=== PATIENT | male | born 1940 | race Caucasian/White ===

== ENCOUNTER 2019-06-14 12:38 | Inpatient (IN) | payer OTHER, MEDICARE ==
[~2019-06-14] VITALS: Ht 180.3 cm; Wt 60.7 kg
[2019-06-14 15:15] VITALS: BP 135/66
--- NOTE | 2019-06-14 16:58 | HPEPDOC ---
General Date of Admission Jun 14, 2019 at 15:00 Date of Service: Jun 14, 2019 Chief Complaint The patient is a 79-year-old male who was transferred from 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 as a transfer from [facility] for dysphagia / abdominal pain. Patient presented to [facility] today after experiencing 2-3 days of abdominal discomfort. Patient reports that his pain is a 5-6/10, patient notes that his pain is non-radiating, without any alleviating or aggravating factors. She denies any nausea, vomiting, constipation or diarrhea. He has not expense any fevers or chills. Last 2 weeks. When asked about discomfort with swallowing. Patient reports that he does not express any problems. Patient girlfriend has reported that he had [place] Cereal this morning without any issues. Patient denies chest pain, palpitations. No change in his baseline shortness of breath or cough. 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, HTN, DLP, IDDM2, COPD on 2L O2 (Chronic hypoxic respiratory failure), Hx of GI bleed 2/2 Diverticulosis, Hx of Phlebitis of L leg (was on Coumadin), CKD3, and Gout Surgical History Cholecystectomy Back surgery Family History - Family history was reviewed and is currently noncontributory to the current hospitalization Social History - Denies the use of tobacco or illicit drugs; patient quit smoking several years ago but was a smoker of 20 years at 1 PPD - Denies recent travel or sick contacts - Lives with girlfriend - Occupation; tractor operator Review of Systems Other systems 10 point review of systems complete, all negative otherwise stated in HPI Vital Signs - Vitals: BP [135/66], HR [58], RR [16], Sat [99%NC3L], Temp [96.4F] - General: Lying in bed, No acute distress, Speaking in full sentences, Awake / Alert - HEENT: NC, AT, PERRLA, EOMI - CVS: RRR, +S1S2 - Lungs: Fair air entry bilaterally, No appreciable wheezing / rales / rhonchi - Abdomen: Soft, Non-distended, Mild epigastric discomfort - Extremities: No lower extremity edema, No calf tenderness - Neuro: No focal motor or sensory deficit - Skin: No visible rashes Laboratory Data Labs 24H Laboratory Tests 2 06/14/19 15:55: Urine Color STRAW, Urine Appearance CLEAR, Urine pH 5.0, Urine Specific [place] 1.006, Urine Protein 2+H, Urine Glucose (UA) 1+H, Urine Ketones NEGATIVE, Urine Blood NEGATIVE, Urine Nitrite NEGATIVE, Urine Bilirubin NEGATIVE, Urine Urobilinogen 0.2, Urine Leukocyte Esterase NEGATIVE, Urine WBC (Auto) 0, Urine RBC (Auto) 3, Urine Hyaline Casts (Auto) 1, Urine Bacteria (Auto) NEGATIVE, Urine Squamous Epithelial Cells 0, Urine Sperm (Auto) Plan / VTE VTE Prophylaxis Ordered?: Yes Plan Plan Abdominal pain / Reported dysphagia - likely 2/2 underlying malignancy - Patient was recently diagnosed with an undifferentiated adenocarcinoma of the lower esophagus - Found on EGD by Dr. Jaki Oh approximately 1 month ago - Clinically he reports he has not had difficulty eating solids; reports eating [employer] Cereal this morning - Labs reviewed from [place] without any significant abnormalities - Will get Esophagram Barium Swallow - Discussed with Dr. Reyes; reported that patient was a surgical candidate af ter he received an EUS completed at [facility]; was advised that he would need Chemotherapy / Radiation prior to surgery - Called and discussed case with Dr. 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 Reyes - was reported that it was for thrombophlebitis - s/p Coumadin CKD3 - Cr at [facility] of 2.0 - Will start IV fluid hydration (gentle) Gout - Will c/w Allopurinol DVT prophylaxis - Will start TEDs/Sequentials and Lovenox KORINA GOMEZ MD Jun 14, 2019 16:58
[2019-06-14] MEDS ORDERED: GLUCAGON FOR INJ 1 MG VIAL (J1610) SC PRN (17:00)
[2019-06-14] MEDS ORDERED: DEXTROSE 50% 50 ML SYRINGE IV PRN (17:00)
[2019-06-14] MEDS ORDERED: GLUCOSE 4 GM CHEW TABLET PO PRN (17:00)
[2019-06-14 17:08] LABS: HEMATOCRIT 41.8 % (42.0-52.0); HEMOGLOBIN 13.6 g/dl (13.5-17.5); MEAN CORPUSCULAR HEMOGLOBIN 29.7 pg (27.0-33.0); MEAN CORPUSCULAR HGB CONC 32.5 g/dl (32.0-36.5); MEAN CORPUSCULAR VOLUME 91.3 fl (80.0-96.0); PLATELET COUNT, AUTOMATED 285 10^3/uL (150-450); RED BLOOD COUNT 4.58 10^6/uL (4.30-6.10)
--- NOTE | 2019-06-14 17:18 | REP ---
Clinical: Dysphagia. Comparison: 12/22/2013. Findings: Mediastinum and cardiac silhouette are stable. Lung forrester demonstrate chronic fibrosis and interstitial changes. No obvious acute consolidation. No effusion. No pneumothorax. Skeletal structures intact. Impression: Chronic-appearing interstitial changes. No obvious acute process. Electronically Signed by Kelvin Singh MD 06/14/2019 05:09 P
[2019-06-14 17:33] LABS: ALBUMIN 3.2 GM/DL (3.2-5.2); BILIRUBIN,TOTAL 0.7 MG/DL (0.2-1.0); CALCIUM LEVEL 9.5 MG/DL (8.8-10.2); CREATININE FOR GFR 1.88 MG/DL (0.70-1.30); GLOMERULAR FILTRATION RATE 37.2 (>42); POTASSIUM SERUM 4.2 MEQ/L (3.5-5.1); TOTAL PROTEIN 7.5 GM/DL (6.4-8.2)
[2019-06-14 17:40] LABS: INR 1.15; PROTHROMBIN TIME 14.4 SECONDS (11.8-14.0)
[2019-06-14] MEDS: GASTROGRAFIN SOLUTION 30ML PO SCH ×4 (18:00→22:00)
[2019-06-14] MEDS ORDERED: ZYLO300T6 PO (19:47)
[2019-06-14] MEDS ORDERED: LOSA50TA88 PO (19:47)
[2019-06-14] MEDS ORDERED: PRAV40TA2 PO (19:47)
[2019-06-14] MEDS ORDERED: VITA100066 PO (19:47)
[2019-06-14] MEDS ORDERED: NOVOINJ2 SQ (19:47)
[2019-06-14] MEDS ORDERED: AMLO5TAB6 PO (19:47)
[2019-06-14] MEDS ORDERED: PANT40TA3 PO (19:47)
[2019-06-14] MEDS ORDERED: FURO20TA2 PO (19:47)
[2019-06-14] MEDS ORDERED: POTA1TAB23 PO (19:47)
[2019-06-14] MEDS ORDERED: ATEN50TA2 PO (19:47)
[2019-06-14] MEDS ORDERED: IPRA0.00 INH (19:47)
[2019-06-14] MEDS: HumaLOG INSULIN (NovoLOG) PER UNIT SC SCH ×2 (20:50→21:00)
[2019-06-14 22:00] VITALS: BP 154/81
[2019-06-14] MEDS: D5W/0.45% SODIUM CHLORIDE 1,000 ML IV SCH (23:00)
[2019-06-14] MEDS: HEPARIN SOD (PORCINE) 5000 UNITS/ML VIAL SQ SCH (23:05)
--- NOTE | 2019-06-15 01:19 | REPVR ---
PROCEDURE INFORMATION: Exam: CT Abdomen And Pelvis Without Contrast Exam date and time: 06/14/2019 4:53 PM Age: 79 years old Clinical indication: Condition or disease; Cancer; Other: Esophagus new dx; Additional info: Malignancy TECHNIQUE: Imaging protocol: Computed tomography of the abdomen and pelvis without contrast. Radiation optimization: All CT scans at this facility use at least one of these dose optimization techniques: automated exposure control; mA and/or kV adjustment per patient size (includes targeted exams where dose is matched to clinical indication); or iterative reconstruction. Other contrast: Route: Oral, Material: gastro, Volume: 600; COMPARISON: No relevant prior studies available. FINDINGS: Subpleural interstitial/fibrotic change in the posterior lung bases. No pleural effusion. There is significant, concentric thickening of the puckett of the distal esophagus likely consistent with patient's history of esophageal cancer. Within the limits of an unenhanced examination, the liver, spleen and pancreas are grossly normal. There are bilateral adrenal nodules, the larger on the left measuring up to 19 mm in diameter and the smaller on the right measuring up to 15 mm in diameter. Gallbladder is surgically absent. There is a cortical cyst in the mid right kidney measuring up to 3.4 cm. No other focal renal abnormalities or obstructive uropathy. Atherosclerotic changes identified within the abdominal aorta and aortic branch vessels with no evidence of aneurysmal dilatation. Small and large bowel loops are grossly normal. No evidence of enteric obstruction. Left-sided colonic diverticular changes with no evidence of diverticulitis. Pelvic organs are grossly normal. No significant free fluid in the abdomen or pelvis. Degenerative changes in the spine. Osseous structures are otherwise unremarkable for age. IMPRESSION: Abnormal thickening of the puckett of the distal esophagus likely consistent with patient's history of espoogeal cancer. Bilateral adrenal nodules as described above. Findings may be consistent with adenoma, although metastatic disease cannot be excluded with certainty. No other acute intra-abdominal or pelvic process on this unenhanced examination. No other evidence of metastatic disease. Electronically signed by: Maynor Cedillo On 06/15/2019 01:19:47 AM
--- NOTE | 2019-06-15 01:24 | REPVR ---
PROCEDURE INFORMATION: Exam: CT Chest Without Contrast Exam date and time: 06/14/2019 4:53 PM Age: 79 years old Clinical indication: Condition or disease; Other: Esophageal malig; Additional info: Malignancy TECHNIQUE: Imaging protocol: Computed tomography of the chest without contrast. Radiation optimization: All CT scans at this facility use at least one of these dose optimization techniques: automated exposure control; mA and/or kV adjustment per patient size (includes targeted exams where dose is matched to clinical indication); or iterative reconstruction. COMPARISON: CR PORTABLE CHEST X-RAY 06/14/2019 4:56 PM FINDINGS: Advanced cystic and bullous changes in the upper lung forrester bilaterally. Probable subpleural fibrotic/interstitial changes in the lung bases. Lungs are otherwise clear. No large pleural effusion. No evidence of pneumothorax. Significant abnormal concentric thickening of the puckett of the mid to distal esophagus. Findings are likely consistent with patient's known history of esophageal malignancy. Contrast material is identified above the esophageal wall thickening with minimal contrast in the gastric fundus. Presumed concentric mass appears to cause significant stenosis. Probable enlarged subcarinal lymph node measuring up to 3.8 x 2.7 cm. Enlarged precarinal lymph node measuring up to 2.2 x 1.8 cm. Atherosclerotic changes in the thoracic aorta and coronary arteries. Mediastinal structures are otherwise unremarkable Visualized osseous structures are grossly normal for age. IMPRESSION: Significant concentric thickening of the puckett of the mid to distal esophagus likely consistent with patient's known history of malignancy. Enlarged subcarinal and precarinal lymph nodes may be metastatic. Advanced cystic and bullous changes in the upper lung forrester with probable chronic interstitial or fibrotic changes in the lung bases. No other acute thoracic process. Electronically signed by: Maynor Cedillo On 06/15/2019 01:24:28 AM
[2019-06-15 06:00] VITALS: BP 119/59
[2019-06-15] MEDS: D5W/0.45% SODIUM CHLORIDE 1,000 ML IV SCH ×3 (06:30→18:40)
[2019-06-15] MEDS: HEPARIN SOD (PORCINE) 5000 UNITS/ML VIAL SQ SCH ×3 (06:37→20:58)
[2019-06-15 07:03] LABS: BASO # 0.1 10^3/uL (0.0-0.2); BASO % 0.7 % (0.0-1.0); EOS # 0.2 10^3/uL (0.0-0.5); EOS % 2.5 % (0.0-3.0); HEMATOCRIT 41.9 % (42.0-52.0); HEMOGLOBIN 13.5 g/dl (13.5-17.5); LYMPH # 1.5 10^3/uL (1.5-5.0); LYMPH % 15.2 % (24.0-44.0); MEAN CORPUSCULAR HEMOGLOBIN 29.6 pg (27.0-33.0); MEAN CORPUSCULAR HGB CONC 32.2 g/dl (32.0-36.5); MEAN CORPUSCULAR VOLUME 91.9 fl (80.0-96.0); MONO # 1.4 10^3/uL (0.0-0.8); MONO % 14.5 % (0.0-5.0); NEUTROPHILS # 6.5 10^3/uL (1.5-8.5); NEUTROPHILS % 66.4 % (36.0-66.0); PLATELET COUNT, AUTOMATED 277 10^3/uL (150-450); RED BLOOD COUNT 4.56 10^6/uL (4.30-6.10); WHITE BLOOD COUNT 9.8 10^3/uL (4.0-10.0)
[2019-06-15 07:33] LABS: ALT/SGPT 7 U/L (12-78); BILIRUBIN,TOTAL 0.9 MG/DL (0.2-1.0); BLOOD UREA NITROGEN 48 MG/DL (7-18); CALCIUM LEVEL 9.4 MG/DL (8.8-10.2); CARBON DIOXIDE LEVEL 25 MEQ/L (21-32); CHLORIDE LEVEL 100 MEQ/L (98-107); CREATININE FOR GFR 1.76 MG/DL (0.70-1.30); GLOMERULAR FILTRATION RATE 40.2 (>42); GLUCOSE, FASTING 147 MG/DL (70-100); MAGNESIUM LEVEL 1.8 MG/DL (1.8-2.4); SODIUM LEVEL 135 MEQ/L (136-145); TOTAL PROTEIN 7.6 GM/DL (6.4-8.2)
--- NOTE | 2019-06-15 08:06 | CR ---
ONCOLOGY CONSULTATION DATE OF CONSULTATION: 06/14/2019 REASON FOR CONSULTATION: For further evaluation and management of esophageal cancer. HISTORY OF PRESENT ILLNESS: Mr. 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 The patient presented with upper gastrointestinal (GI) bleeding and was admitted to the [facility]. The patient underwent an EGD and found out he has adenocarcinoma at the GE junction. PAST MEDICAL HISTORY: 1. Upper GI bleeding. 2. Acute blood loss anemia. 3. History of chronic obstructive pulmonary disease (COPD) and pulmonary fibrosis. 4. Type 2 diabetes mellitus. 5. Chronic kidney disease, stage III. 6. Malnutrition and under nourished. 7. History of deep vein thrombosis (DVT). 8. Hypertension. 9. Gout. 10. Hyperlipidemia. PHYSICAL EXAMINATION: The patient is a well developed, under nourished, cachectic male in no acute distress lying comfortably in bed. The patient is hard of hearing and difficult to communicate with. HEENT: Head is normocephalic, atraumatic. Sclerae anicteric. The patient has a bump on his left cheek, probably sebaceous cyst or lipoma. Throat and mouth are clear. NECK: Supple. Jugular venous distention (JVD) negative. No thyromegaly. CHEST: Lungs are clear to auscultation and percussion. CARDIOVASCULAR: S1 and S2 heard, no murmur, no gallop. ABDOMEN: Soft, nontender. No organomegaly. No masses felt. There is slight tenderness in the right upper quadrant of the abdomen. EXTREMITIES: Show no cyanosis, edema or clubbing. IMPRESSION/PLAN: 1. Adenocarcinoma at the GE junction. Mr. Fregoso is a pleasant 79-year-old white male who presented with GI bleeding and further workup with EGD showed he has a mass at the GE junction, the biopsy of which shows poorly differentiated adenocarcinoma. The patient was already evaluated by surgery and felt that he is a candidate for surgery. It is unclear at this point what stage of esophageal cancer he has. If his insurance allows, the patient should have a PET CT scan workup for staging of his cancer. If the patient has distant metastasis, he will not be a candidate for surgery for complete resection. 2. The patient has a history of COPD and pulmonary fibrosis. It is unclear at this point whether he can tolerate surgery. He needs a pulmonary consult and followup with pulmonary function test to see whether he is fit for surgery. 3. The patient is under nourished and cachectic. If it is possible, since he is undernourished and nutritionally inadequate, consider to put in an NG tube and feeding with nutritional supplement to build up his nutrition. 4. Anemia. Recommend an anemia workup with iron, ferritin, B12 and folate levels. Because of his history of GI bleeding he might have iron deficiency anemia. If he has iron deficiency anemia we can do an iron infusion. From the tissue biopsy specimen, please send HER2-prabhakar to see whether it is positive. If it is positive, he may benefit from treating with Herceptin. Also send PD-L1 together from the biopsy tissue specimen if it is possible. The patient might be a candidate to use an immune checkpoint inhibitor. The patient needs a surgical followup to see whether he is still a candidate for surgery. If the tumor if far advanced, we can downsize the tumor by neoadjuvant concurrent chemoradiotherapy. If he is not a surgical candidate, we can also proceed with palliative treatment to improve his swallowing. At this point, the patient is undernourished and will have difficulty to tolerate concurrent chemoradiotherapy. Consider to put in an NG tube and direct feeding with nutritional supplements until his malnutrition is improved. If the patient is considered for neoadjuvant chemoradiation and/or he is not a candidate for surgery, we can also treat with concurrent chemoradiation. Under chemo-radiotherapy, the pt usually develops radiation esophagitis and will be difficult to swallow. Prior to treatment, Jejunal (J) tube insertion is warranted for feeding purpose. Jejunal and not Gastric feeding tube is necessary so that after resection of the esophagus, the stomach can be mobilized and pulled up to anastomose with the distal end of the resected esophagus. When he becomes a candidate for concurrent chemotherapy he will need an infusion port and radiation oncology consult. If you have any questions, please check with the oncology department. We will followup at the outpatient clinic. Usually we give chemoradiation at the outpatient clinic. We will followup at the oncology clinic.
--- NOTE | 2019-06-15 08:15 | ECGEPIP ---
[facility] Test Date: 2019-06-14 Pat Name: MICHAEL LIANG SR Department: Room: [place] [address] Gender: Male Senior Java Programmer: LOVELY : 1940 Requested By: KORINA GOMEZ Order Number: [id number] Reading MD: Jaxon Marion Measurements Intervals [place] Rate: 55 P: 72 WI: 169 QRS: 88 QRSD: 100 T: 43 QT: 454 QTc: 437 Interpretive Statements SINUS BRADYCARDIA Comparison tracing not on file Electronically Signed on 06-15-2019 8:14:46 EST by Jaxon Marion
[2019-06-15] MEDS ORDERED: ONDANSETRON 4MG/2ML VIAL (J2405) IV PRN (09:15)
[2019-06-15] MEDS: HumaLOG INSULIN (NovoLOG) PER UNIT SC SCH ×4 (09:33→20:58)
[2019-06-15 11:37] LABS: CK-MB VALUE MASS 1.9 NG/ML (<3.6); CPK CREATINE PHOSPHOKINASE 73 U/L (39-308); FREE T4 1.44 NG/DL (0.76-1.46); THYROID STIMULATING HORMONE 0.478 uIU/ML (0.358-3.740); TROPONIN I < 0.02 NG/ML (< 0.10)
[2019-06-15 11:47] LABS: TOTAL T3 51.7 NG/DL (60.0-181.0)
--- NOTE | 2019-06-15 12:12 | IPNPDOC ---
Text Note Date of Service The patient was seen on 06/15/19. 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 Patient presented to [facility] today after experiencing 2-3 days of abdominal discomfort. Patient reports that his pain is a 5-6/10, patient notes that his pain is non-radiating, without any alleviating or aggravating factors. She denies any nausea, vomiting, constipation or diarrhea. He has not expense any fevers or chills over the last 2 weeks. Patient was seen and examined at the bedside. Patient reports he is expressing some nausea this morning and having difficulty keeping food down. He denies any chest pain, shortness breath or palpitations. Reports has diffuse abdominal discomfort still persists. Has not had any bowel movements overnight. Denies any urinary discomfort. Objective: Vitals (See below) General: Lying in bed, no acute distress, comfortable, Awake / Alert HEENT: NC, AT CVS: +S1S2 Lungs: Fair air entry b/l, -w/r/r Abdomen: Soft, nondistended, epigastric tenderness still appreciated Extremities: No evidence of lower extremity edema, - Calf tenderness Assessment and plan: Abdominal pain / Reported dysphagia - likely 2/2 underlying malignancy - Clinically he reports he has not had difficulty eating solids; reports eating [employer] Cereal on the morning of 06/14 - This morning patient reports that he's having nausea and difficulty keeping food down - We'll have speech therapy evaluate patient - Continue with clear liquid diet as tolerated - Added Zofran for symptomatic control Hx of 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 Jaki Oh approximately 1 month ago - Discussed with Dr. Reyes; reported that patient was a surgical candidate after he received an EUS completed at [facility]; was advised that he would need Chemotherapy / Radiation prior to surgery - Dr. Narvaez (Oncology); on consult - appreciate their input - When discussing with patient about about his goals of care, he indicated that she did not want any chemotherapy, radiation or surgery, however we will discuss this again with the family at the bedside HTN - BP appears well controlled - c/w home medications DLP - c/w Pravastatin IDDM2 - c/w ISS COPD on 2L O2 - Chronic hypoxic respiratory failure - No evidence of exacerbation at this time - c/w Inhaled therapy as ordered Hx of GI bleed 2/2 Diverticulosis - Has been taken off Coumadin since that point Hx of Phlebitis of L leg - Discussed reason for Coumadin in the past with Dr. Reyes - was reported that it was for thrombophlebitis - s/p Coumadin CKD3 - c/w gentle IV fluid hydration Gout - c/w Allopurinol GERD - c/w Protonix DVT prophylaxis - c/w TEDs/Sequentials and Heparin Disposition: - Patient will be evaluated by speech therapy - Will continue to work with physical therapy and will likely require subacute rehabilitation - Will discuss goals of care with patient and family Selam WALKER, I+O VSSelam I+O Laboratory Tests 06/14/19 16:37 06/15/19 06:07 Vital Signs Date Time Temp Pulse Resp B/P (MAP) Pulse Ox O2 Delivery O2 Flow Rate FiO2 06/15/19 06:00 98.4 61 20 119/59 (79) 93 Nasal Cannula 2.0 I&O- Last 24 Hours up to 6 AM 06/15/19 06:00 Intake Total 0 ml Output Total 350 ml Balance -350 ml KORINA GOMEZ MD Jun 15, 2019 12:12
[2019-06-15 13:07] LABS: CK-MB VALUE MASS 1.9 NG/ML (<3.6); CPK CREATINE PHOSPHOKINASE 90 U/L (39-308); MB/CK RELATIVE INDEX 2.11 (< OR =4); TROPONIN I < 0.02 NG/ML (< 0.10)
[2019-06-15] MEDS: atenoloL 50 MG TAB PO SCH (13:12)
[2019-06-15] MEDS: allopurinoL 300 MG TAB PO SCH (13:17)
[2019-06-15] MEDS: amLODIPine 5 MG TAB PO SCH (13:17)
[2019-06-15] MEDS: PANTOPRAZOLE 40MG TAB (PROTONIX) PO SCH ×2 (13:17→20:57)
[2019-06-15] MEDS: LOSARTAN 50 MG TAB PO SCH (13:17)
[2019-06-15] MEDS: VITAMIN D 1,000 INTERNATIONAL UNITS TABLET PO SCH (13:17)
[2019-06-15 14:00] VITALS: BP 151/73
[2019-06-15] MEDS: ALBUTEROL SULFATE 2.5 MG/0.5 ML INH NEB SOLN INH SCH ×3 (14:03→20:31)
[2019-06-15] MEDS ORDERED: PRAVASTATIN 20 MG TAB PO SCH (21:00)
[2019-06-15 22:00] VITALS: BP 126/61
[2019-06-16] MEDS: D5W/0.45% SODIUM CHLORIDE 1,000 ML IV SCH (05:55)
[2019-06-16] MEDS: HEPARIN SOD (PORCINE) 5000 UNITS/ML VIAL SQ SCH (05:55)
[2019-06-16 06:00] VITALS: BP 128/70
[2019-06-16 06:10] LABS: BASO # 0.1 10^3/uL (0.0-0.2); BASO % 0.7 % (0.0-1.0); EOS # 0.2 10^3/uL (0.0-0.5); EOS % 2.3 % (0.0-3.0); HEMATOCRIT 36.3 % (42.0-52.0); HEMOGLOBIN 11.9 g/dl (13.5-17.5); LYMPH # 1.8 10^3/uL (1.5-5.0); LYMPH % 19.6 % (24.0-44.0); MEAN CORPUSCULAR HGB CONC 32.8 g/dl (32.0-36.5); MEAN CORPUSCULAR VOLUME 91.4 fl (80.0-96.0); MONO # 1.3 10^3/uL (0.0-0.8); MONO % 14.8 % (0.0-5.0); NEUTROPHILS # 5.6 10^3/uL (1.5-8.5); NEUTROPHILS % 62.2 % (36.0-66.0); PLATELET COUNT, AUTOMATED 231 10^3/uL (150-450); RED BLOOD COUNT 3.97 10^6/uL (4.30-6.10)
[2019-06-16 06:26] LABS: ALBUMIN 2.6 GM/DL (3.2-5.2); BILIRUBIN,TOTAL 0.6 MG/DL (0.2-1.0); CALCIUM LEVEL 8.7 MG/DL (8.8-10.2); CREATININE FOR GFR 1.64 MG/DL (0.70-1.30); GLOMERULAR FILTRATION RATE 43.6 (>42); MAGNESIUM LEVEL 1.8 MG/DL (1.8-2.4); POTASSIUM SERUM 3.8 MEQ/L (3.5-5.1); TOTAL PROTEIN 6.9 GM/DL (6.4-8.2)
[2019-06-16] MEDS: HumaLOG INSULIN (NovoLOG) PER UNIT SC SCH ×4 (08:24→21:00)
[2019-06-16] MEDS: VITAMIN D 1,000 INTERNATIONAL UNITS TABLET PO SCH (08:24)
[2019-06-16] MEDS: PANTOPRAZOLE 40MG TAB (PROTONIX) PO SCH (08:24)
[2019-06-16] MEDS: allopurinoL 300 MG TAB PO SCH (08:25)
[2019-06-16] MEDS: atenoloL 50 MG TAB PO SCH (08:25)
[2019-06-16] MEDS: amLODIPine 5 MG TAB PO SCH (08:25)
[2019-06-16] MEDS: LOSARTAN 50 MG TAB PO SCH (08:25)
[2019-06-16] MEDS: ALBUTEROL SULFATE 2.5 MG/0.5 ML INH NEB SOLN INH SCH ×4 (08:38→20:00)
--- NOTE | 2019-06-16 08:43 | IPNPDOC ---
Text Note Date of Service The patient was seen on 06/16/19. 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 as a transfer from [facility] for dysphagia / abdominal pain. Patient presented to [facility] today after experiencing 2-3 days of abdominal discomfort. Patient reports that his pain is a 5-6/10, patient notes that his pain is non-radiating, without any alleviating or aggravating factors. She denies any nausea, vomiting, constipation or diarrhea. He has not expense any fevers or chills over the last 2 weeks. Patient was seen and examined at the bedside. Patient had an uneventful evening. He denies any chest pain, shortness of breath or palpitations. Objective: Vitals (See below) General: Lying in bed, no acute distress, comfortable, Awake / Alert - not oriented to place / time HEENT: NC, AT CVS: +S1S2 Lungs: Fair air entry b/l, no appreciable wheezing, rhonchi or rales Abdomen: Soft, no evidence of distention or tenderness Extremities: No evidence of lower extremity edema, - Calf tenderness Assessment and plan: Abdominal pain / Reported dysphagia - likely 2/2 underlying malignancy - Clinically he reports he has not had difficulty eating solids; reports eating [employer] Cereal on the morning of 06/14 - c/w diet based on speech therapy recommendations - c/w Zofran for symptomatic control Hx of 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 Jaki Oh approximately 1 month ago - Discussed with Dr. Reyes; reported that patient was a surgical candidate after he received an EUS completed at [facility]; was advised that he would need Chemotherapy / Radiation prior to surgery - Dr. Narvaez (Oncology); on consult; advised that patient is not a candidate for chemotherapy unless his nutritional status improves - possible PEG tube - When discussing with patient about about his goals of care, he indicated that she did not want any chemotherapy, radiation or surgery, however he does not appear to have the capacity to make decisions - Discussed with Sister and Girlfriend who have indicated that his son would be the HCP; however after several attempts at calling him he has not answered - Will need to decide if a PEG tube will be placed after HCP is established; most likely Sister will have to decide HTN - BP appears well controlled - c/w home medications DLP - c/w Pravastatin IDDM2 - c/w ISS COPD on 2L O2 - Chronic hypoxic respiratory failure - No evidence of exacerbation at this time - c/w Inhaled therapy as ordered Hx of GI bleed 2/2 Diverticulosis - Has been taken off Coumadin since that point Hx of Phlebitis of L leg - Discussed reason for Coumadin in the past with Dr. Reyes - was reported that it was for thrombophlebitis - s/p Coumadin CKD3 - c/w gentle IV fluid hydration Gout - c/w Allopurinol GERD - c/w Protonix DVT prophylaxis - c/w TEDs/Sequentials and Heparin Disposition: - c/w physical therapy and will likely require NH placement - Discussed goals of care with son and daughter, currently we have discussed and patient's family has decided that Mr. Fregoso would not want to have a feeding tube placed; they will not be pursing chemotherapy / radiation or surgery at the patient's request - Patient will be transitioned to [employer]; non-essential medications will be discontinued and medications of pain / anxiety / secretions will be instituted - Hospice consult has been placed - MOLST form has been updated to reflect this change VSSelam, I+O VSSelam, I+O Laboratory Tests 06/16/19 05:32 Vital Signs Date Time Temp Pulse Resp B/P (MAP) Pulse Ox O2 Delivery O2 Flow Rate FiO2 06/16/19 08:25 125/60 06/16/19 08:25 63 06/16/19 06:00 97.6 18 97 Nasal Cannula 2.0 I&O- Last 24 Hours up to 6 AM 06/16/19 06:00 Intake Total 2070 ml Output Total 125 ml Balance 1945 ml KORINA GOMEZ MD Jun 16, 2019 08:43
[2019-06-16] MEDS ORDERED: LORazepam 2 MG/ML VIAL (J2060) IV PRN (10:30)
[2019-06-16] MEDS ORDERED: MORPHINE 2 MG/ML 1ML VIAL (J2270) IV PRN (10:30)
[2019-06-16] MEDS ORDERED: SCOPOLAMINE 1MG TRANSDERMAL PATCH TOP PRN (10:30)
[2019-06-17 02:00] VITALS: BP 135/63
[2019-06-17] MEDS: HumaLOG INSULIN (NovoLOG) PER UNIT SC SCH ×4 (07:30→21:00)
[2019-06-17] MEDS: ALBUTEROL SULFATE 2.5 MG/0.5 ML INH NEB SOLN INH SCH ×4 (07:53→20:22)
[2019-06-17] MEDS: LOSARTAN 50 MG TAB PO SCH (08:48)
[2019-06-17] MEDS: amLODIPine 5 MG TAB PO SCH (08:48)
[2019-06-17] MEDS: atenoloL 50 MG TAB PO SCH (08:49)
[2019-06-17] MEDS: ALBUTEROL SULFATE 2.5 MG/0.5 ML INH NEB SOLN INH PRN (09:45)
[2019-06-17] MEDS: guaiFENesin ER 600 MG TAB PO SCH ×2 (12:49→20:10)
[2019-06-17 20:22] VITALS: O2SAT 97
[2019-06-18] MEDS: ALBUTEROL SULFATE 2.5 MG/0.5 ML INH NEB SOLN INH SCH ×4 (08:09→20:00)
[2019-06-18] MEDS: LOSARTAN 50 MG TAB PO SCH (08:48)
[2019-06-18] MEDS: HumaLOG INSULIN (NovoLOG) PER UNIT SC SCH ×4 (08:48→21:00)
[2019-06-18] MEDS: guaiFENesin ER 600 MG TAB PO SCH ×2 (08:48→20:42)
[2019-06-18] MEDS: amLODIPine 5 MG TAB PO SCH (08:49)
[2019-06-18] MEDS: atenoloL 50 MG TAB PO SCH (08:49)
[2019-06-19] MEDS: ALBUTEROL SULFATE 2.5 MG/0.5 ML INH NEB SOLN INH SCH ×4 (07:10→20:22)
[2019-06-19] MEDS: HumaLOG INSULIN (NovoLOG) PER UNIT SC SCH ×4 (07:30→20:18)
[2019-06-19] MEDS: atenoloL 50 MG TAB PO SCH (07:53)
[2019-06-19] MEDS: LOSARTAN 50 MG TAB PO SCH (07:53)
[2019-06-19] MEDS: guaiFENesin ER 600 MG TAB PO SCH ×2 (07:54→22:07)
[2019-06-19] MEDS: amLODIPine 5 MG TAB PO SCH (07:54)
[2019-06-19] MEDS: MORPHINE SULFATE ORAL SOLN 10 MG/5 ML UD SL PRN (10:19)
[2019-06-19] MEDS: NYSTATIN 500,000 U/5 ML SUSP UDC SS SCH ×3 (12:15→23:02)
[2019-06-20] MEDS: NYSTATIN 500,000 U/5 ML SUSP UDC SS SCH ×3 (05:50→17:39)
[2019-06-20] MEDS: ALBUTEROL SULFATE 2.5 MG/0.5 ML INH NEB SOLN INH SCH ×4 (07:16→20:19)
[2019-06-20] MEDS: guaiFENesin ER 600 MG TAB PO SCH ×2 (08:43→21:27)
[2019-06-20] MEDS: HumaLOG INSULIN (NovoLOG) PER UNIT SC SCH ×4 (08:43→21:00)
[2019-06-20] MEDS: LOSARTAN 50 MG TAB PO SCH (08:45)
[2019-06-20] MEDS: atenoloL 50 MG TAB PO SCH (08:46)
[2019-06-20] MEDS: amLODIPine 5 MG TAB PO SCH (08:46)
[2019-06-21] MEDS: NYSTATIN 500,000 U/5 ML SUSP UDC SS SCH ×4 (00:09→17:23)
[2019-06-21] MEDS: HumaLOG INSULIN (NovoLOG) PER UNIT SC SCH ×4 (07:30→21:00)
[2019-06-21] MEDS: ALBUTEROL SULFATE 2.5 MG/0.5 ML INH NEB SOLN INH SCH ×4 (07:46→20:10)
[2019-06-21] MEDS: amLODIPine 5 MG TAB PO SCH (09:48)
[2019-06-21] MEDS: LOSARTAN 50 MG TAB PO SCH (09:48)
[2019-06-21] MEDS: atenoloL 50 MG TAB PO SCH (09:49)
[2019-06-21] MEDS: guaiFENesin ER 600 MG TAB PO SCH ×2 (09:49→22:06)
[2019-06-22] MEDS: NYSTATIN 500,000 U/5 ML SUSP UDC SS SCH ×5 (00:33→23:31)
[2019-06-22] MEDS: HumaLOG INSULIN (NovoLOG) PER UNIT SC SCH ×4 (08:09→22:27)
[2019-06-22] MEDS: guaiFENesin ER 600 MG TAB PO SCH ×2 (08:09→23:31)
[2019-06-22] MEDS: amLODIPine 5 MG TAB PO SCH (08:16)
[2019-06-22] MEDS: LOSARTAN 50 MG TAB PO SCH (08:16)
[2019-06-22] MEDS: atenoloL 50 MG TAB PO SCH (08:16)
[2019-06-22] MEDS: ALBUTEROL SULFATE 2.5 MG/0.5 ML INH NEB SOLN INH SCH ×4 (08:40→20:59)
[2019-06-23] MEDS: MORPHINE SULFATE ORAL SOLN 10 MG/5 ML UD SL PRN (00:01)
[2019-06-23] MEDS: ALBUTEROL SULFATE 2.5 MG/0.5 ML INH NEB SOLN INH PRN (00:13)
[2019-06-23] MEDS: LORazepam 1 MG TAB PO PRN ×3 (00:34→22:39)
[2019-06-23] MEDS: NYSTATIN 500,000 U/5 ML SUSP UDC SS SCH ×3 (06:06→16:53)
[2019-06-23] MEDS: ALBUTEROL SULFATE 2.5 MG/0.5 ML INH NEB SOLN INH SCH ×5 (07:25→16:34)
[2019-06-23] MEDS: HumaLOG INSULIN (NovoLOG) PER UNIT SC SCH ×4 (07:44→22:33)
[2019-06-23] MEDS: guaiFENesin ER 600 MG TAB PO SCH ×2 (07:45→22:39)
[2019-06-23] MEDS: LOSARTAN 50 MG TAB PO SCH (07:45)
[2019-06-23] MEDS: amLODIPine 5 MG TAB PO SCH (07:45)
[2019-06-23] MEDS: atenoloL 50 MG TAB PO SCH (07:46)
[2019-06-24] MEDS: NYSTATIN 500,000 U/5 ML SUSP UDC SS SCH ×4 (00:14→16:52)
[2019-06-24] MEDS: ALBUTEROL SULFATE 2.5 MG/0.5 ML INH NEB SOLN INH PRN (01:47)
[2019-06-24] MEDS: ALBUTEROL SULFATE 2.5 MG/0.5 ML INH NEB SOLN INH SCH ×4 (07:33→19:30)
[2019-06-24] MEDS: HumaLOG INSULIN (NovoLOG) PER UNIT SC SCH ×4 (07:48→21:00)
[2019-06-24] MEDS: LOSARTAN 50 MG TAB PO SCH (07:49)
[2019-06-24] MEDS: amLODIPine 5 MG TAB PO SCH (07:49)
[2019-06-24] MEDS: guaiFENesin ER 600 MG TAB PO SCH ×2 (07:49→20:53)
[2019-06-24] MEDS: atenoloL 50 MG TAB PO SCH (07:50)
[2019-06-24] MEDS: LORazepam 1 MG TAB PO PRN ×3 (08:16→18:17)
[2019-06-25] MEDS: NYSTATIN 500,000 U/5 ML SUSP UDC SS SCH ×2 (00:26→05:40)
[2019-06-25] MEDS: ALBUTEROL SULFATE 2.5 MG/0.5 ML INH NEB SOLN INH SCH (07:42)
[2019-06-25] MEDS: HumaLOG INSULIN (NovoLOG) PER UNIT SC SCH (08:43)
[2019-06-25 08:49] VITALS: BP 81/53
[2019-06-25] MEDS: LOSARTAN 50 MG TAB PO SCH (08:49)
[2019-06-25] MEDS: guaiFENesin ER 600 MG TAB PO SCH (08:50)
[2019-06-25] MEDS: atenoloL 50 MG TAB PO SCH (08:50)
[2019-06-25] MEDS: amLODIPine 5 MG TAB PO SCH (08:50)
[2019-06-25] MEDS ORDERED: ONDA4INJ48 IV (10:23)
[2019-06-25] MEDS ORDERED: SCOP1PAT2 TOP (10:23)
[2019-06-25] MEDS ORDERED: MORP1SOL3 SL (10:23)
[2019-06-25] MEDS ORDERED: ATIV1TAB7 PO (10:23)
--- NOTE | 2019-06-25 17:17 | DS.PDOC ---
Discharge Summary General Date of Admission Jun 14, 2019 at 15:00 Date of Discharge 06/25/19 Discharge Summary PROCEDURES PERFORMED DURING STAY: [None]. 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 for dysphagia / abdominal pain. Patient presented to [facility] today after experiencing 2-3 days of abdominal discomfort. Patient reports that his pain is a 5-6/10, patient notes that his pain is non-radiating, without any alleviating or aggravating factors. HOSPITAL COURSE: Patient was transferred to [facility] status and hospice care DISCHARGE MEDICATIONS: Please see below. ALLERGIES: Please see below. PHYSICAL EXAMINATION ON DISCHARGE: General: Lying in bed, No acute distress, Speaking in full sentences, Awake / Alert - HEENT: NC, AT, PERRLA, EOMI - CVS: RRR, +S1S2 - Lungs: Fair air entry bilaterally, No appreciable wheezing / rales / rhonchi - Abdomen: Soft, Non-distended, Mild epigastric discomfort - Extremities: No lower extremity edema, No calf tenderness - Neuro: No focal motor or sensory deficit - Skin: No visible rashes LABORATORY DATA: Please see below. PROGNOSIS: Poor ACTIVITY: As tolerated [facility]ITION: [facility] DISCHARGE CONDITION: Stable TIME SPENT ON DISCHARGE: Greater than 15minutes. Vital Signs/I&Os Vital Signs Date Time Temp Pulse Resp B/P (MAP) Pulse Ox O2 Delivery O2 Flow Rate FiO2 06/25/19 08:50 68 06/25/19 08:49 81/53 06/24/19 09:00 2.0 06/23/19 00:31 Room Air 06/23/19 00:18 18 I&O- Last 24 Hours up to 6 AM 06/25/19 06:00 Intake Total 956 ml Output Total 725 ml Balance 231 ml Laboratory Data Labs 24H Laboratory Tests 2 06/24/19 21:43: Bedside Glucose (Misc Panel) 147H 06/25/19 07:55: Bedside Glucose (Misc Panel) 173H FSBS Laboratory Tests Test 06/24/19 21:43 06/25/19 07:55 Range/Units Bedside Glucose (Misc Panel) 147 173 83-110 MG/DL Discharge Medications Scheduled PRN Lorazepam (Ativan) 1 Mg Tablet, 1 MG PO Q2HP PRN for ANXIETY Morphine Sulfate (Morphine Sulfate) 10 Mg/5 Ml Solution, 2 MG SL Q2HP PRN for SEVERE PAIN (PS 8-10) Ondansetron HCl/Pf (Ondansetron HCl 4 mg/2 ml Vial) 4 Mg/2 Ml Vial, 4 MG IV Q4HP PRN for NAUSEA OR VOMITING Scopolamine (Transderm-Scop) 1 Each Patch.td.3, 1 MG TOP Q3DP PRN for EXCESSIVE SECRETIONS Allergies Coded Allergies: No Known Allergies (Unverified , 06/14/19) GILSON AJ DO Jun 25, 2019 17:17
== END 2019-06-25 11:10 | disposition hospice, inpatient (51) | DRG 948 ==
LOC: M MSPAV 15:00
PROVIDERS: ADMIT Student in an Organized Health Care Education/Training Program; ATTEND Internal Medicine
DX: G89.3 Neoplasm related pain (acute) (chronic) (principal); C15.9 Malignant neoplasm of esophagus, unspecified; J96.11 Chronic respiratory failure with hypoxia; E46 Unspecified protein-calorie malnutrition; D62 Acute posthemorrhagic anemia; I12.9 Hypertensive chronic kidney disease with stage 1 through stage 4 chronic kidney disease, or unspecified chronic kidney disease; R13.10 Dysphagia, unspecified; E78.5 Hyperlipidemia, unspecified; J44.9 Chronic obstructive pulmonary disease, unspecified; Z99.81 Dependence on supplemental oxygen; N18.3 Chronic kidney disease, stage 3 (moderate); M10.9 Gout, unspecified; K21.9 Gastro-esophageal reflux disease without esophagitis; Z87.19 Personal history of other diseases of the digestive system; Z86.72 Personal history of thrombophlebitis; Z90.49 Acquired absence of other specified parts of digestive tract; Z79.899 Other long term (current) drug therapy; Z51.5 Encounter for palliative care; Z66 Do not resuscitate